=== PATIENT | female | born 1970 | race Caucasian/White ===

== ENCOUNTER → 2016-06-12 | Outpatient (CLI) | payer OTHER ==
--- NOTE | 2016-06-12 13:25 | MA ---
Right Diagnostic Digital Mammogram with iCAD Clinical Indications: Asymmetric density on recent screening mammogram. Technique: Digital spot compression cc, spot mediolateral oblique and true lateral views. This exami nation was processed by the iCAD computer-aided detection system. Comparison: Recent mammogram. 2012 Breast Density: 3, 50-75%. Findings: Previous asymmetric density identified is no longer detected on the additional views or umesh e lateral views. This is consistent with normal overlapping breast parenchyma. Impression: ACR BI-RADS 2: Benign right mammogram. Recommendation: Annual mammograms with next screening mammograms in January 2017. [facility] will send a result letter to the patient. Negative mammography should not preclude additional workup of a clinically suspicious finding. Findings and recommendations have been discussed with the patient who agrees with the plan. The patient's information is entered into a reminder system with a target due date for her next mammo gram.
== END ==
LOC: CIMAGING 12:53
PROVIDERS: ATTEND Family Medicine
DX: R92.8 Other abnormal and inconclusive findings on diagnostic imaging of breast (principal)
CPT/HCPCS: G0206